=== PATIENT | female | born 1980 | race African-American/Black ===

== ENCOUNTER 2018-10-15 13:33 | Emergency (ER) | payer MEDICAID ==
[~2018-10-15] VITALS: Ht 162.6 cm; Wt 54.0 kg
[2018-10-15] MEDS ORDERED: HYDROCODONE/ACETAMINOPHEN 5/325MG TABLET PO PRN (16:30)
[2018-10-15 17:31] VITALS: BP 121/74
== END 2018-10-15 18:16 | disposition home or self-care (01) ==
LOC: ER 13:33
DX: S00.83XA Contusion of other part of head, initial encounter (principal); Z88.0 Allergy status to penicillin; W22.8XXA Striking against or struck by other objects, initial encounter; Y93.89 Activity, other specified; Y92.89 Other specified places as the place of occurrence of the external cause; Y99.8 Other external cause status
CPT/HCPCS: 70150; 99283